=== PATIENT | female | born 1990 | race Caucasian/White ===

== ENCOUNTER 2017-03-19 12:38 | Emergency (ER) | payer OTHER ==
[2017-03-19] MEDS ORDERED: predniSONE 20 MG TAB ONE (13:20)
[2017-03-19] MEDS ORDERED: Azithromycin 250 MG TAB ONE (13:20)
[2017-03-19 13:29] LABS: Bilirubin Negative (Negative); Blood, Urine Trace (Negative); Clarity Clear (Clear); Glucose, Urine (Dipstick) Negative (Negative); Leukocyte Negative (Negative); Nitrite Negative (Negative); Protein, Urine (Dipstick) Negative (Neg-Trace); RBC/HPF 0-3 HPF (0-3); Specific Gravity, Urine 1.015 (1.005-1.030); Squamous Epithelial 0-3 HPF (0-3); Urobilinogen 0.2 mg/dL (0.2-1.0); WBC/HPF 0-3 HPF (0-3); pH, Urine 5.5 (5.0-9.0)
[2017-03-19 13:30] LABS: Bacteria/HPF Rare-Few HPF (None Seen)
[2017-03-19 14:13] LABS: Pregnancy Test - Urine (BHCG) Negative (Negative); Pregu Control Background? CLEAR/WHITE (CLR/WHITE); Pregu Control Bar Appear? YES (CONTROL BAR); Specific Gravity 1.015 (1.002-1.036)
== END 2017-03-19 13:25 | disposition home or self-care (01) ==
LOC: MADERS 12:38
DX: J20.9 Acute bronchitis, unspecified (principal)
CPT/HCPCS: 81003; 81015; 81025; 99283; J7506

== ENCOUNTER 2017-06-08 12:16 | Emergency (ER) | payer OTHER | END 2017-06-08 12:53 | disposition home or self-care (01) | LOC: MADERS 12:16 | DX: J06.9 Acute upper respiratory infection, unspecified (principal); J04.0 Acute laryngitis; Z87.891 Personal history of nicotine dependence | CPT/HCPCS: 99283 ==

== ENCOUNTER 2017-10-16 22:50 | Emergency (ER) | payer OTHER ==
[2017-10-16] MEDS ORDERED: Ibuprofen 600 MG TAB ONE (23:31)
[2017-10-16] MEDS ORDERED: cefTRIAXone\\ROCEPHIN 1 GM VIAL ONE (23:50)
[2017-10-16] MEDS ORDERED: Sterile Water 10 ML ONE (23:50)
== END 2017-10-17 00:12 | disposition home or self-care (01) ==
LOC: MADERS 22:50
DX: J01.00 Acute maxillary sinusitis, unspecified (principal); H65.91 Unspecified nonsuppurative otitis media, right ear; Z87.891 Personal history of nicotine dependence
CPT/HCPCS: 87081; 87430; 87804; 96372; A4216; J0696; J1040

== ENCOUNTER 2018-08-30 23:51 | Emergency (ER) | payer OTHER | END 2018-08-31 00:24 | disposition home or self-care (01) | LOC: MADERS 23:51 | DX: R05 Cough (principal); J45.909 Unspecified asthma, uncomplicated; Z87.891 Personal history of nicotine dependence | CPT/HCPCS: 99283 ==

== ENCOUNTER 2019-01-22 08:36 | Outpatient (CLI) | payer MEDICAID ==
--- NOTE | 2019-01-22 09:31 | ULT ---
ULTRASOUND PELVIC ULTRASOUND TRANSVAGINAL DOPPLER DUPLEX: DATE: 01/22/2019 HISTORY: Right-sided pelvic pain TECHNIQUE: Transabdominal transducer and endovaginal transducer used to visualize intrapelvic contents with meyer scale, color-flow, and spectral analysis. FINDINGS: Uterus: 9 x 6 x 5 cm Endometrial stripe: 0.8 cm (8 mm) with tiny amount of free fluid within the lumen at the fundus and a nother focus of tiny amount of fluid in the mid body. No moderate sized or large leiomyoma visualized. No free fluid in the cul-de-sac. Right ovary: 3 x 2 x 1.5 cm. Left ovary: 3 x 1.5 x 2 cm. Large number of follicles throughout both ovaries. Typical follicle is on the order of 0.5 cm (5 mm). Blood flow demonstrated in bilateral ovarian parenchyma by Doppler. No evidence of ovarian cyst (defined as 2 cm or larger) IMPRESSION: 1) large number of bilateral ovarian follicles. 2) tiny amount of free fluid within the endometrial cavity.
== END 2019-01-22 08:37 | disposition home or self-care (01) ==
LOC: MADULT 08:36
PROVIDERS: ATTEND Family Medicine
DX: R10.31 Right lower quadrant pain (principal)
CPT/HCPCS: 76856

== ENCOUNTER 2019-02-19 08:34 | Emergency (ER) | payer BC, MEDICAID ==
--- NOTE | 2019-02-19 09:04 | RAD ---
EXAM: 4 views of the left knee HISTORY: Knee pain after fall COMPARISON: None FINDINGS: No knee effusion is seen. There is no evidence of acute fracture or dislocation. No signifi cant degenerative changes are seen. No soft tissue swelling is present. IMPRESSION: No evidence of acute osseous abnormality.
== END 2019-02-19 09:20 | disposition home or self-care (01) ==
LOC: MADERS 08:34
DX: S80.02XA Contusion of left knee, initial encounter (principal); J45.909 Unspecified asthma, uncomplicated; Z87.891 Personal history of nicotine dependence; W01.0XXA Fall on same level from slipping, tripping and stumbling without subsequent striking against object, initial encounter

== ENCOUNTER 2019-09-22 23:56 | Emergency (ER) | payer BC, MEDICAID, OTHER ==
[2019-09-23] MEDS ORDERED: Ondansetron ODT 4 MG TAB ONE (00:11)
== END 2019-09-23 00:19 | disposition home or self-care (01) ==
LOC: MADERS 23:56
DX: J11.1 Influenza due to unidentified influenza virus with other respiratory manifestations (principal)
CPT/HCPCS: 99283; Q0162

== ENCOUNTER 2021-03-25 22:05 | Emergency (ER) | payer MEDICAID, OTHER ==
[2021-03-26 20:33] LABS: SARS-CoV-2 PCR by NAA Not Detected (NotDetected)
== END 2021-03-26 | disposition home or self-care (01) ==
LOC: MADERS 22:05
DX: J06.9 Acute upper respiratory infection, unspecified (principal); Z20.822 Contact with and (suspected) exposure to COVID-19; J45.909 Unspecified asthma, uncomplicated; F17.200 Nicotine dependence, unspecified, uncomplicated
CPT/HCPCS: 99283; U0003; U0005

== ENCOUNTER 2024-08-02 23:14 | Emergency (ER) | payer MEDICAID, SELFPAY | END 2024-08-02 23:59 | disposition home or self-care (01) | LOC: MADERS 23:14 | DX: B34.9 Viral infection, unspecified (principal); F17.200 Nicotine dependence, unspecified, uncomplicated | CPT/HCPCS: 99283 ==